=== PATIENT | male | born 1975 | race Caucasian/White ===

== ENCOUNTER 2017-12-11 17:30 | Emergency (ER) | payer OTHER, SELFPAY ==
[~2017-12-11 17:30] MED LIST: ISOVUE-370 76%-LOCM 1 ML ONE
[2017-12-11] MEDS ORDERED: Morphine 4 MG/ML VIAL ONE ×3 (18:17→21:55)
[2017-12-11] MEDS ORDERED: Ketorolac Tromethamine 30 MG/ML VIAL ONE (18:17)
[2017-12-11 18:19] LABS: #Basophils 0.1 thou/uL (0.0-0.2); #Eosinphils 0.1 thou/uL (0.0-0.7); #Lymphocytes 2.8 thou/uL (1.20-3.40); #Monocytes 0.8 thou/uL (0.11-0.59); #Neutrophils 7.3 thou/uL (1.40-6.50); %Basophils 0.9 % (0.0-1.0); %Eosinophils 1.3 % (0.0-10.0); %Lymphocytes 24.9 % (21.0-51.0); %Monocytes 7.6 % (0.0-10.0); %Neutrophils 65.3 % (42.0-75.0); Mean Corpuscular HGB CONC 34.3 g/dL (32.0-36.0); Mean Corpuscular Volume 87.5 fl (80.0-94.0); Platelet Count 325 thou/uL (130-400); RBC Distribution Width 13.2 % (11.5-14.5); Red Blood Cell (RBC) Count 5.65 mill/uL (4.70-6.10); White Blood Cell (WBC) Count 11.2 thou/uL (4.8-10.8)
[2017-12-11 18:40] LABS: ALT (SGPT) 56 U/L (8-55); AST (SGOT) 32 U/L (5-34); Albumin 4.7 g/dL (3.5-5.0); Alkaline Phosphatase 86 U/L (40-150); Anion Gap 14 mmol/L (10-20); BUN (Urea Nitrogen) 17 mg/dL (8.9-20.6); Bilirubin, Total 0.6 mg/dL (0.2-1.2); Calc. Creatinine Clearance 0 mL/min (70-130); Calcium 9.9 mg/dL (7.8-10.44); Carbon Dioxide 23 mmol/L (22-29); Chloride 103 mmol/L (98-107); Estimated GFR-MDRD 59; Globulin 3.4 g/dL (2.4-3.5); Glucose 121 mg/dL (70-105); Potassium 4.1 mmol/L (3.5-5.1); Protein, Total 8.1 g/dL (6.0-8.3); Sodium 136 mmol/L (136-145)
[2017-12-11 18:43] LABS: CKMB 1.6 ng/mL (0-6.6); Troponin I Less than 0.010 ng/mL (< 0.028)
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
== END 2017-12-12 00:20 | disposition home or self-care (01) ==
LOC: ERS 17:30
DX: S40.012A Contusion of left shoulder, initial encounter (principal); J92.9 Pleural plaque without asbestos; S30.810A Abrasion of lower back and pelvis, initial encounter; F17.220 Nicotine dependence, chewing tobacco, uncomplicated; Z71.6 Tobacco abuse counseling; V48.6XXA Car passenger injured in noncollision transport accident in traffic accident, initial encounter
CPT/HCPCS: 71045; 71275; 80053; 82553; 84484; 85025; 96361; 96374; 96375; 96376; 99406; J1885; J2270